=== PATIENT | female | born 1950 | race Caucasian/White ===

== ENCOUNTER → 2017-03-25 | Outpatient (CLI) | payer BC ==
[~2017-03-25] MED LIST: ACCUPRIL PO; ACCUPRIL40 MG PO; ACETAMINOPHEN650 M3 PO; BACTRIM DS TABL1 TAB PO; BISOPROLOL-HCTZ1 TAB PO; CIPRO PO; FAMOTIDINE PO; FLAGYL PO; HCTZ PO; HYDROCODONE-APA1 T55 PO; HYDROXYZINE HCL25 M1 PO; LEVAQUIN PO; MEDROL4 MG/DOSE- PO; NEXIUM PO; PREDNISONE PO; TIMOLOL; TYLENOL325 M1 PO; UNK DIURETIC; ZEGERID40 MG/PKT PO; ZITHROMAX1 G/PKT PO; ZOCOR PO; ZYRTEC PO
--- NOTE | ~2017-03-25 | MY11 ---
[facility] A Service of [facility] RADIOLOGY TEXT RESULTS PATIENT: ROSA PEREZ LOCATION: [facility] : 54 UNIT #: [id number] AGE: [address]: Nj Flores MD SEX: F ORDER DR: [id number] [facility]. [place], [place] [address] [id number] MR#: [id number] Acc #: [id number] NAME: ROSA PEREZ : 1950 SEX: F STUDY DATE/TIME: 03/25/2017 13:22 UNIT: [facility] ROOM: STUDY DESCRIPTION: MY Mammogram Screening Dig Michele Attending Physician: Nj Flores M.D. Referring Physician: Nj Flores M.D. Ordering Physician: Nj Flores M.D. Primary Care Physician: Nj Flores M.D. MEDICAL IMAGING REPORT This report is preliminary unless electronic signature is present EXAM Digital screening mammogram 03/25/2017 HISTORY 66-year-old woman positive family history, mother age 64. Annual screening. COMPARISON STUDIES Mammograms date to 02/12/2007 with most recent 11/13/2015. FINDINGS Digital imaging of each breast was completed utilizing a two-view examination of each breast in craniocaudal and mediolateral-oblique projections. Review and interpretation of digital mammograms include a second review in conjunction with FDA-approved CAD device. There is a normal parenchymal presentation bilaterally consistent with the patient's age. There are no breast masses imaged and no parenchymal asymmetry is visualized. There are no suspicious microcalcifications and I see no focal architectural disturbance. Breast parenchyma is predominantly fatty replaced. IMPRESSION Negative screening digital mammogram. One-year followup recommended. Patients over the age of 40 are entered into a reminder system with target due date for the next mammogram. A result letter will also be sent to the patient. BIRADS: 1 Negative Dictated by... [facility] A Service [facility] RADIOLOGY TEXT RESULTS PATIENT: ROSA PEREZ LOCATION: [facility] : 54 UNIT #: [id number] AGE: [address]: Nj Flores MD SEX: F ORDER DR: Tl Shea M.D. THIS IS AN ELECTRONICALLY VERIFIED REPORT Tl Shea M.D. at 03/26/2017 8:10 AM JBB/pcl TD: 03/25/2017 18:41 JOB #: [id number] MEDICAL IMAGING REPORT Page 1 of 1 COPY
== END | disposition home or self-care (01) ==
LOC: CWCC 12:39
DX: Z12.31 Encounter for screening mammogram for malignant neoplasm of breast (principal); Z80.3 Family history of malignant neoplasm of breast
CPT/HCPCS: G0202